=== PATIENT | male | born 1990 | race Two or more races ===

== ENCOUNTER 2016-06-02 02:46 | Emergency (ER) | payer MEDICAID ==
[~2016-06-02] VITALS: Ht 165.1 cm; Wt 72.6 kg
[2016-06-02 03:08] VITALS: BP 135/78
== END 2016-06-02 03:43 | disposition home or self-care (01) ==
LOC: ER 02:46
DX: K52.9 Noninfective gastroenteritis and colitis, unspecified (principal)
CPT/HCPCS: 99281; A4606; Z7610; Z7502